=== PATIENT | male | born 1985 | race Caucasian/White ===

== ENCOUNTER 2021-04-30 18:40 | Emergency (ER) | payer OTHER ==
[~2021-04-30 18:40] MED LIST: FLOMAX0.4 MG PO; ONDANSETRON ODT4 MG PO; PERCOCET 7.5-31 EACH PO
[2021-04-30 19:43] LABS: HEMOGLOBIN 15.5 gm/dl (14.0-17.5); RED BLOOD COUNT 5.27 M/UL (4.20-5.50); WHITE BLOOD COUNT 11.1 K/UL (4.5-11.0)
[2021-04-30] MEDS ORDERED: FLOMAX0.4 MG PO (21:40)
[2021-04-30] MEDS ORDERED: ZOFRAN ODT 4 MG4 MG SL (21:40)
[2021-04-30] MEDS ORDERED: PERCOCET 5/325 T1 EA PO (21:41)
== END 2021-05-01 | disposition home or self-care (01) ==
LOC: ER1 18:40
PROVIDERS: Student in an Organized Health Care Education/Training Program
DX: N17.9 Acute kidney failure, unspecified (principal); N13.2 Hydronephrosis with renal and ureteral calculous obstruction; Z87.442 Personal history of urinary calculi
CPT/HCPCS: 80053; 81001; 83690; 85025; 96374; 96375; 99284; J1885; J2405

== ENCOUNTER → 2021-08-19 | Outpatient (CLI) | payer OTHER ==
[~2021-08-19] MED LIST changes: +PERCOCET 5/325 T1 EA PO; +ZOFRAN ODT 4 MG4 MG SL
== END ==
LOC: KOH-I 08:00
DX: R31.9 Hematuria, unspecified (principal); R10.9 Unspecified abdominal pain; N20.0 Calculus of kidney
CPT/HCPCS: 74176